=== PATIENT | male | born 1995 ===

== ENCOUNTER 2018-08-25 18:58 | Emergency (ER) | payer OTHER ==
[~2018-08-25] VITALS: Ht 188 cm; Wt 86.0 kg
[2018-08-25 19:02] VITALS: BP 125/85
[2018-08-25] MEDS ORDERED: LIDOCAINE-MPF 1%, 5ML INFIL ONE (19:30)
[2018-08-25] MEDS ORDERED: LIDOCAINE-MPF 1%, 5ML ONE (19:30)
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
--- NOTE | 2018-08-25 20:00 | NUR ---
PA AT BEDSIDE FOR SUTURING
== END 2018-08-25 20:27 | disposition home or self-care (01) ==
LOC: ED 20:19
DX: S01.511A Laceration without foreign body of lip, initial encounter (principal); Y04.0XXA Assault by unarmed brawl or fight, initial encounter; Y93.89 Activity, other specified; Y92.89 Other specified places as the place of occurrence of the external cause; Y99.8 Other external cause status
CPT/HCPCS: 12011; 99283

== ENCOUNTER 2018-08-25 21:44 | Emergency (ER) | payer OTHER ==
[~2018-08-25] VITALS: Ht 188 cm; Wt 85.0 kg
[2018-08-25 21:46] VITALS: BP 129/79
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
== END 2018-08-25 22:09 | disposition home or self-care (01) ==
LOC: ED 21:50
DX: S01.511A Laceration without foreign body of lip, initial encounter (principal); X58.XXXA Exposure to other specified factors, initial encounter; Y93.89 Activity, other specified; Y92.89 Other specified places as the place of occurrence of the external cause; Y99.8 Other external cause status
CPT/HCPCS: 99283